=== PATIENT | female | born 1975 | race Caucasian/White ===

== ENCOUNTER 2016-08-10 05:03 | Day surgery (SDC) | payer BC ==
[~2016-08-10 05:03] MED LIST: ALLEGRA ALLERG180 M1 PO; CPAP
[2016-08-11] MEDS ORDERED: PERCOCET 5-3251 EACH PO (11:35)
[2016-11-26] MEDS ORDERED: PERCOCET 7.5-31 EAC1 PO (09:39)
[2016-11-26] MEDS ORDERED: BENADRYL25 M3 PO (09:41)
[2016-11-26] MEDS ORDERED: TYLENOL EXTRA500 M1 PO (09:42)
[2016-11-26] MEDS ORDERED: MILK OF MAGNESIA PO (09:43)
[2016-11-26] MEDS ORDERED: IBUPROFEN200 M2 PO (10:47)
[2016-11-26] MEDS ORDERED: MOTRIN IB200 M1 PO (11:03)
== END 2016-08-11 13:55 ==
LOC: SHSA 05:03 → ORW 06:53 → PACU 10:40 → OBGF 11:50
PROC: 0UT94ZZ Resection of Uterus, Percutaneous Endoscopic Approach (ICD-10-PCS; principal; 2016-08-10)
PROC: 0UTC4ZZ Resection of Cervix, Percutaneous Endoscopic Approach (ICD-10-PCS; 2016-08-10)
PROC: 0UT64ZZ Resection of Left Fallopian Tube, Percutaneous Endoscopic Approach (ICD-10-PCS; 2016-08-10)
PROC: 8E0W4CZ Robotic Assisted Procedure of Trunk Region, Percutaneous Endoscopic Approach (ICD-10-PCS; 2016-08-10)
DX: N83.8 Other noninflammatory disorders of ovary, fallopian tube and broad ligament (principal); E66.01 Morbid (severe) obesity due to excess calories; J45.909 Unspecified asthma, uncomplicated; G47.33 Obstructive sleep apnea (adult) (pediatric); E28.2 Polycystic ovarian syndrome; Z68.43 Body mass index [BMI] 50.0-59.9, adult; Z79.899 Other long term (current) drug therapy; Z91.018 Allergy to other foods; Z91.048 Other nonmedicinal substance allergy status; Z87.891 Personal history of nicotine dependence; Z90.49 Acquired absence of other specified parts of digestive tract; Z98.890 Other specified postprocedural states; Z99.89 Dependence on other enabling machines and devices
CPT/HCPCS: J0690; J1335; J2405; J3010; J7030; J7121